=== PATIENT | female | born 1990 | race Caucasian/White ===

== ENCOUNTER 2024-03-06 11:21 | Emergency (ER) | payer OTHER, MEDICAID, SELFPAY ==
[2024-03-06 11:34] VITALS: BP 155/93; PULSE 119; RESP 22; TEMP 36.6; O2SAT 100; BMI 31.6
--- NOTE | 2024-03-06 11:38 | DI.RAD.S_ITS ---
PROCEDURE: XR CHEST 2V INDICATIONS: cough TECHNIQUE: 2 views of the chest were acquired. COMPARISON: None. FINDINGS: Surgical changes and devices: Right upper quadrant surgical clips. Lungs and pleura: Lungs are clear. No pleural effusions or pneumothorax. Mediastinum: Mediastinal contours are normal. Heart size is normal. Bones and chest wall: No suspicious bony abnormalities. Soft tissues appear unremarkable. IMPRESSION: No acute cardiopulmonary abnormality is seen. Dictated by: Yuri Nugent M.D. on 03/06/2024 at 12:43 Approved by: Yuri Nugent M.D. on 03/06/2024 at 12:44
--- NOTE | 2024-03-06 11:53 | EKG_ITS ---
[address] [id number] [address] [address] Test Date: 2024-03-06 Pat Name: Jim Salazar Department: Room: Gender: Female Human Service Coordinator: AGUSTINA : 1990 Requested By: Order Number: [id number] Reading MD: Hollis Madden MD Measurements Intervals [place] Rate: 103 P: 56 [place]: 120 QRS: 80 QRSD: 86 T: 45 QT: 334 QTc: 437 Interpretive Statements Sinus tachycardia Electronically Signed On 03-07-2024 8:25:32 PDT by Hollis Madden MD
--- NOTE | 2024-03-06 11:56 | ED.GENADULT ---
HPI - General Adult General Chief complaint: Upper Respiratory Symptoms Stated complaint: COVID+, Think I have pneumonia Time Seen by Provider: 03/06/24 11:55 Source: patient Mode of arrival: Ambulatory History of Present Illness HPI narrative: Otherwise healthy 33-year-old woman mild upper respiratory viral symptoms approximately 2 weeks ago with a positive COVID test at home. It seemed that she was getting better until last week when she began having increasing temperatures, increasing productive cough and is now feeling generally worse. She is able to eat and drink, she is cognitively appropriate she did drive herself to the visit today. She has not complaining of chest pain, abdominal pain no nausea vomiting or diarrhea at this point Related Data Previous Rx's Medication Instructions Recorded doxycycline hyclate 100 mg capsule 100 mg PO BID #20 caps 03/06/24 Allergies Allergy/AdvReac Type Severity Reaction Status Date / Time Penicillins AdvReac redness in Verified 03/06/24 11:37 face Review of Systems Review of Systems Narrative: Pertinent positive and negative findings as per HPI Patient History Social History Smoking Status: Former smoker Smoking Status: Former smoker alcohol intake frequency: other Substance Use Type: does not use Exam Initial Vital Signs Initial Vital Signs: Vital Signs Temperature 98 F 03/06/24 11:34 Pulse Rate 119 H 03/06/24 11:34 Respiratory Rate 22 03/06/24 11:34 Blood Pressure 155/93 H 03/06/24 11:34 Pulse Oximetry 100 03/06/24 11:34 Oxygen Delivery Method Room Air 03/06/24 11:34 General: Healthy appearing, in no acute distress. Able to give a complete and coherent history. Well-nourished well-developed HEENT: Moist mucous membranes, normal sclera with reactive pupils, Respiratory: Lungs with rhonchi in the right mid axillary line. No significant wheeze no accessory muscle use no respiratory distress Cardiac: Regular rate and rhythm no murmurs no bruits Abdomen: Soft, nontender, good bowel tones, no flank pain Skin: Warm and dry, no rashes Neurologic: Grossly neurologically intact with no obvious asymmetries or abnormalities Extremities: No trauma, well perfused Psych: Cooperative, appropriate insight and affect Course Orders Ordered: ED Orders 03/06/24 11:38 Chest [XR chest 2V] Stat 03/06/24 11:53 EKG-12 Lead Stat Discontinued Medications Doxycycline Hyclate (Doxycycline Hyclate 100 Mg Tablet) 100 mg PO NOW ONE Stop: 03/06/24 12:08 Last Admin: 03/06/24 12:12 Dose: 100 mg Documented By: PATRICK Vital Signs Vital signs: Vital Signs - 8 hr 03/06/24 11:34 Temperature 98 F Pulse Rate 119 H Respiratory Rate 22 Blood Pressure 155/93 H Pulse Oximetry 100 Oxygen Delivery Method Room Air Medical Decision Making MDM Narrative Medical decision making narrative: CC: Productive cough and fever one-week after upper respiratory infection Complicating co-morbidities: Recent COVID infection Data collected from: patient Differential considered: COVID complication, bacterial pneumonia following a viral infection, asthma exacerbation Exam documented above, pertinent findings include: Patient was slightly tachycardic with exercise however heart rate comes down appropriately at rest. She has not hypoxic. She does have rhonchi developing for right mid axillary line with no respiratory distress Imaging studies independently reviewed: Chest x-ray suggests developing basilar pneumonia on the right side Treatments: Oral doxycycline is given Discussion: 33-year-old woman recent COVID infection now with secondary bacterial infection appreciated on clinical exam and suggested by chest x-ray. At this point she does not need additional blood work she has not showing signs of sepsis she does not need hospital admission. We will treat her with 10 days of doxycycline. Discussed findings, concerns reasons return to the emergency department. She is safe for discharge Discharge Plan Departure Patient Disposition: Home Clinical Impression: Bacterial pneumonia Instructions: DI for Pneumonia -- Adult Activity Restrictions/Additional Instructions: Thank you for coming in today Your description of being sick almost getting better and then getting worse now with productive cough and fevers is very suspicious for a bacterial pneumonia. Your clinical exam suggests that you are developing a pneumonia in your right lower lung and I suspect that is also why you are having some pain up into your right shoulder. The chest x-ray is consistent with your history and exam Your oxygen level is reassuring, you do not need to be hospitalized at this time I am going to recommend 10 days of doxycycline, an antibiotic for your pneumonia. Please complete this entirely. If you find that you are getting worse or develop any new symptoms, please feel free to return to the emergency department for further evaluation. Prescriptions: New doxycycline hyclate 100 mg capsule 100 mg PO BID Qty: 20 0RF Stand Alone Forms: Patient Portal/API
[2024-03-06 11:58] VITALS: PULSE 106; RESP 23; O2SAT 98
--- NOTE | 2024-03-06 11:58 | PC.NURSE ---
This EDRN spoke with Dr. Fajardo regarding orders for patient. Chest xr 2V and EKG ordered on patient, further orders will be placed by Dr. Fajardo.
[2024-03-06 11:59] VITALS: BP 132/99; PULSE 95; RESP 16; O2SAT 98
[2024-03-06 12:00] VITALS: BP 128/95; PULSE 98; RESP 15; O2SAT 99
[2024-03-06] MEDS: DOXYCYCLINE HYCLATE 100 MG TABLET PO (12:12)
[2024-03-06 12:30] VITALS: BP 120/89; PULSE 91; RESP 16; O2SAT 100
[2024-03-06 13:02] VITALS: BP 122/65; PULSE 86
== END 2024-03-06 13:02 | disposition home or self-care (01) ==
PROVIDERS: Emergency Provider Emergency Medicine
DX: J15.9 Unspecified bacterial pneumonia (principal); U09.9 Post COVID-19 condition, unspecified; Z87.891 Personal history of nicotine dependence
CPT/HCPCS: 71046; 93005; 93010; 99283; 99284